=== PATIENT | male | born 1975 | race African-American/Black ===

== ENCOUNTER 2024-09-26 16:44 | Emergency (ER) | payer SELFPAY ==
[~2024-09-26] VITALS: Ht 182.9 cm; Wt 77.1 kg
[2024-09-26 17:09] VITALS: PULSE 84; RESP 16; TEMP 98.5; O2SAT 98
[2024-09-26] MEDS ORDERED: DOXYCYCLINE HY100 MG PO (18:59)
== END 2024-09-26 19:04 | disposition home or self-care (01) ==
LOC: ER 19:02
DX: L02.413 Cutaneous abscess of right upper limb (principal); S90.411A Abrasion, right great toe, initial encounter; W22.09XA Striking against other stationary object, initial encounter; Y93.02 Activity, running; Y92.89 Other specified places as the place of occurrence of the external cause; F17.210 Nicotine dependence, cigarettes, uncomplicated
CPT/HCPCS: 99283